=== PATIENT | female | born 1965 | race Caucasian/White ===

== ENCOUNTER 2016-09-30 08:29 | Day surgery (SDC) | payer BC ==
[~2016-09-30] VITALS: Ht 162.6 cm; Wt 102.0 kg
[~2016-09-30 08:29] MED LIST: ATOR20TA9 PO; BUPIVACAINE/PF 0.25% ONE; CEFAZOLIN 1,000 MG ONE; CYCL-259 PO; DEXAMETHASONE 4 MG/ML, 5ML ONE; DICL50TA2 PO; EPINEPHRINE 1 MG/ML, 1ML ONE; FAMO20TA7 PO; GABA300C10 PO; HYDR25TA6 PO; KETOROLAC 30 MG/1 ML ONE; LEVO50TA5 PO; LISI-167 PO; METF500T4 PO; METH-356 PO; ONDANSETRON 2MG/ML, 2ML ONE; PROPOFOL 10 MG/ML, 20ML ONE; ROCURONIUM 10 MG/ML ONE; SUCCINYLCHOLINE 20 MG/ML, 10ML ONE; ZOLP-413 PO
[2016-09-30] MEDS ORDERED: FENTANYL PF 250 MCG/5ML ONE ×2 (09:04→10:19)
[2016-09-30] MEDS ORDERED: MIDAZOLAM 1 MG/ML, 2ML ONE ×2 (09:04→12:19)
[2016-09-30 09:12] VITALS: BP 169/88
[2016-09-30] MEDS ORDERED: LACTATED RINGERS 1,000 ML IV SCH ×2 (09:12→11:57)
[2016-09-30] MEDS ORDERED: PNEUMOCOCCAL 23 VACCINE IM-VACC ONE (09:30)
[2016-09-30] MEDS ORDERED: OXYcodone 5 MG/5 ML ORAL.SOL UDC PO PRN (10:30)
[2016-09-30] MEDS ORDERED: ALBUTEROL SULFATE 2.5 MG/3 ML NPPB PRN (10:30)
[2016-09-30] MEDS ORDERED: HYDROmorphone 1 MG/ML, 1ML IV PRN (10:30)
[2016-09-30] MEDS ORDERED: MEPERIDINE/PF 25MG/0.5ML IVPush PRN (10:30)
[2016-09-30] MEDS ORDERED: PROMETHAZINE 25 MG/ML, 1ML IV PRN (10:30)
[2016-09-30] MEDS ORDERED: ACETAMINOPHEN 325 MG TABLET PO PRN (10:30)
[2016-09-30] MEDS ORDERED: ONDANSETRON 2MG/ML, 2ML IVPush PRN ×2 (10:30→12:00)
[2016-09-30] MEDS ORDERED: THROMBIN 5,000 UNIT VIAL TP ONE (10:44)
[2016-09-30] MEDS ORDERED: BUPIVACAINE/PF 0.25% ONE (11:20)
[2016-09-30] MEDS ORDERED: EPINEPHRINE 1 MG/ML, 1ML ONE (11:20)
[2016-09-30] MEDS ORDERED: IBUPROFEN 600 MG TABLET PO PRN (12:00)
[2016-09-30] MEDS ORDERED: KETOROLAC 30 MG/1 ML IVPush PRN (12:00)
[2016-09-30] MEDS ORDERED: PROMETHAZINE 25 MG SUPP PR ONE (12:00)
[2016-09-30] MEDS ORDERED: METHADONE 10 MG TABLET PO PRN (12:00)
[2016-09-30] MEDS ORDERED: METHADONE 10 MG TABLET ONE (12:06)
[2016-09-30] MEDS ORDERED: MEPERIDINE/PF 25MG/0.5ML ONE (12:07)
[2016-09-30] MEDS ORDERED: FENTANYL PF 100 MCG/2ML ONE (12:19)
[2016-09-30] MEDS ORDERED: ALBUTEROL SULFATE 2.5 MG/3 ML ONE (12:21)
[2016-09-30] MEDS: MIDAZOLAM 1 MG/ML, 2ML IV PRN ×2 (12:21→12:35)
[2016-09-30] MEDS: FENTANYL PF 100 MCG/2ML IV PRN ×2 (12:22→12:30)
[2016-09-30] MEDS ORDERED: METHADONE 10 MG TABLET PO ONE (12:30)
[2016-09-30] MEDS ORDERED: OXYcodone 5 MG/5 ML ORAL.SOL UDC ONE (12:46)
[2016-09-30] MEDS ORDERED: HYDROmorphone 1 MG/ML, 1ML ONE (12:46)
[2016-09-30] MEDS ORDERED: KETOROLAC 30 MG/1 ML ONE (13:24)
[2016-09-30] MEDS ORDERED: KETOROLAC 30 MG/1 ML IM ONE (13:30)
== END 2016-09-30 17:15 ==
LOC: OUT 08:29
PROVIDERS: ATTEND Obstetrics & Gynecology Female Pelvic Medicine and Reconstructive Surgery
DX: N81.10 Cystocele, unspecified (principal); E11.9 Type 2 diabetes mellitus without complications; I10 Essential (primary) hypertension; E03.9 Hypothyroidism, unspecified; F17.200 Nicotine dependence, unspecified, uncomplicated
CPT/HCPCS: 52000; 58571; 82962; 88307; 94640; J0171; J0330; J0690; J1100; J1170; J1885; J1940; J2175; J2250; J2405; J2704; J3010; J3490; J7120; J7613